=== PATIENT | male | born 1975 | race African-American/Black ===

== ENCOUNTER 2017-11-10 18:36 | Emergency (ER) | payer BC, OTHER ==
[~2017-11-10] VITALS: Ht 185.4 cm; Wt 73.0 kg
[~2017-11-10 18:36] MED LIST: CHLO.12%30 SSP; CLIN1CAP6 PO; LORTS PO; MEDR4PAK3 PO
[2017-11-10 18:47] VITALS: BP 118/72; PULSE 93; RESP 16; TEMP 98.4; O2SAT 99
--- NOTE | 2017-11-10 20:27 | PD ---
HPI Chief Complaint: Hemorrhoid Time Seen by Provider: 20:09 Travel History International Travel<30 days: No Contact w/Intl Traveler<30days: No Traveled to known affect area: No History of Present Illness HPI 42yo M with PMH of external hemorrhoid and rectal prolapse here because he has been having pain in his hemorrhoid for 3 days. Pt said he has been using sitz bath. Denies any bleeding. Denies any fever, chest pain, sob, n/v, abdominal pain, focal weakness or numbness. Pt states he is mainly here because he needs a work note. PFSH Past Medical History Autoimmune Disease: No Cancer: No Cardiovascular Problems: No Diminished Hearing: No Endocrine: No Genitourinary: No Immune Disorder: No Musculoskeletal: No Neurologic: No Psychiatric: No Reproductive: No Respiratory: No Past Surgical History Body Medical Devices: TUBES IN EARS Ear Surgery: Yes ("TUBES IN EARS") Oral Surgery: Yes (Broken jaw surg October 2011) Pacemaker: No Tympanostomy Tube: Yes (TUBES IN EARS A CHILD) Social History Alcohol Use: Yes (2 QUARTS BEER DAILY) Tobacco Use: Yes (1 PP WEEK) Substance Use: No Allergies-Medications (Allergen,Severity, Reaction): Coded Allergies: No Known Allergies (Unverified , 10/02/11) Reported Meds & Prescriptions Reported Meds & Active Scripts Active Tylenol (Acetaminophen) 325 Mg Tab 650 Mg PO Q6H PRN Review of Systems Except as stated in HPI: all other systems reviewed are Neg Physical Exam Narrative GENERAL: 42yo M in mild distress. SKIN: Focused skin assessment warm/dry. HEAD: Atraumatic. Normocephalic. EYES: Pupils equal and round. No scleral icterus. No injection or drainage. ENT: No nasal bleeding or discharge. Mucous membranes pink and moist. NECK: Trachea midline. No JVD. CARDIOVASCULAR: Regular rate and rhythm. No murmur appreciated. RESPIRATORY: No accessory muscle use. Clear to auscultation. Breath sounds equal bilaterally. GASTROINTESTINAL: Abdomen soft, non-tender, nondistended. RECTAL: +[employer] bulge that is soft, red and tender to palpation. Not thrombosed or bleeding. MUSCULOSKELETAL: No obvious deformities. No clubbing. No cyanosis. No edema. NEUROLOGICAL: Awake and alert. No obvious cranial nerve deficits. Motor grossly within normal limits. Normal speech. PSYCHIATRIC: Appropriate mood and affect; insight and judgment normal. Data Data Last Documented VS Vital Signs Date Time Temp Pulse Resp B/P (MAP) Pulse Ox O2 Delivery O2 Flow Rate FiO2 11/10/17 21:46 14 11/10/17 18:47 98.4 93 118/72 (87) 99 Orders Orders Acetamin-Hydrocod 325-5 Mg ([place] 5-325 (11/10/17 20:45) Ed Discharge Order (11/10/17 23:03) MDM Medical Decision Making Medical Screen Exam Complete: Yes Emergency Medical Condition: Yes Differential Diagnosis External hemorrhoid vs. rectal prolapse Narrative Course 42yo M with history of hemorrhoid and rectal prolapse here requesting a work note. Pt has a pink mass protruding from rectum, does not want me to try to push it back it. It is soft, not bleeding and pink. Pt given lortab which help with pain. 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 Pt then said he will let me try but did not tolerate light touch and wants me to stop. Will have pt follow up as outpatient. Return precautions given. Diagnosis Primary Impression: Rectal prolapse Referrals: Paulino Palacio MD call for appointment Patient Instructions: General Instructions Departure Forms: Tests/Procedures, Work Release Enter return to work date: November 12, 2017 Additional Instructions: Please follow up with general surgery as outpatient. Return to the ED if symptoms worsen. Med/Other Pt SpecificInfo: Prescription(s) given Scripts Acetaminophen (Tylenol) 325 Mg Tab 650 MG PO Q6H Y for PAIN SCALE 1 TO 4, #20 TAB 0 Refills Prov: EmRuth DO 11/10/17 Disposition: 01 DISCHARGE HOME Condition: Stable Ruth Em DO November 10, 2017 20:27
[2017-11-10] MEDS ORDERED: ACETAMINOPHEN/HYDROcodone 325 MG/5 MG TAB PO ONE (20:45)
[2017-11-10 21:46] VITALS: RESP 14
[2017-11-10] MEDS ORDERED: TYLE325T PO (23:03)
== END 2017-11-10 23:43 | disposition home or self-care (01) ==
LOC: NEPD 18:36
DX: K62.3 Rectal prolapse (principal); F17.200 Nicotine dependence, unspecified, uncomplicated
CPT/HCPCS: 99283